=== PATIENT | male | born 1955 | race Caucasian/White ===

== ENCOUNTER 2019-05-20 21:05 | Inpatient (IN) | payer MEDICARE ==
[~2019-05-20] VITALS: Ht 170.2 cm; Wt 77.1 kg
--- NOTE | ~2019-05-20 | OP ---
PATIENT NAME: MIN FIELD MEDICAL RECORD: [id number] :59 LOCATION:D.M2 D.2 ADMISSION DATE:05/21/19 SURGEON: FRIEDA ANDERSEN MD DATE OF OPERATION: 05/22/2019 DATE OF SERVICE: 05/22/2019 PROCEDURES: 1. Laser atherectomy, PTCA stent LAD. 2. PTCA stent left circumflex. 3. Selective coronary angiography. INDICATION: Non-Q-wave myocardial infarction and coronary artery disease. PROCEDURE PERFORMED: After informed consent was obtained and after a detailed description of risks, benefits as well as alternative therapies, the patient elected to proceed with angiogram and angioplasty. The left femoral area was prepped and draped in normal sterile fashion. Left femoral artery was cannulated via modified Seldinger technique with placement of 6-Azeri sheath. All catheters exchanged through this sheath. FINDINGS: The left anterior descending has 90% stenosis distally. We performed laser atherectomy with this; however, quickly into this every time the laser catheter was advanced. He had nonsustained ventricular tachycardia. We then stented this with a 2.25 x 26 mm [place]. Result was 0% residual stenosis. PTCA STENT OF THE LEFT CIRCUMFLEX: The distal circumflex has a 90% stenosis. This was addressed with a 2.5 x 12 mm [place]. Result was 0% residual stenosis. OVERALL IMPRESSION: Successful percutaneous transluminal coronary angioplasty stent of the left anterior descending and circumflex, both going from 90% initial stenosis to 0% residual. TRANSINT:[id number] Voice Confirmation ID: [id number] DOCUMENT ID: [id number] FRIEDA ANDERSEN MD CC: [id number] DICTATION DATE: 05/22/19 112 SUPERVISOR SLATE SPLITTING: 05/22/19 1242 ADM IN [place] [id number] [place] [id number]
--- NOTE | ~2019-05-20 | HEMODYNAMI ---
PATIENT:MIN FIELD MEDICAL RECORD: [id number] : 59 LOCATION:[place] [address] ADMISSION DATE: 05/20/19 Generatedon:05/21/201911:40 Patient name: MIN FIELD Patient #: [id number] SSN: [id number] : 1955 Date of study: 05/21/2019 Page: Of Hemodynamic Procedure Report Patient Data Patient Demographics Procedure consent was obtained First Name: MIN Gender: Male Last Name: RASHIDA : 1955 Patient #: [id number] Age: 64 year(s) Race: SSN: [id number] Additional ID: [id number] Contact details Address: [address] [place] [address] [place] State: [place] City: [place] Zip code: [address] Past Medical History History of disease Date Diagnosis Comments CAD Allergies Allergen Reaction Date Comments Reported Other 05/21/2019 FLEXERIL, DROPERIDOL, allergy DILAUDID,NITROGLYCERIN, ZOFRAN, PROTONIX, STADOL, TORADOL, NUBAIN, COMPAZINE, IODINE, REGLAN, DOLOBID Admission Admission Data Admission Date: 05/20/2019 Admission Time: 21:05 Room #: 2122 Height (in.): 67 BSA: 1.92 (m2) Height (cm.): 170.18 BMI: 27.57 (kg/m2) Weight (lbs.): 176 Weight (kg.): 79.83 Lab Results Lab Result Date: 05/21/2019 Lab Result Time: 0:00 Biochemistry Name Units Result Min Max Creatinine mg/dl 1.9 --(----)-* 0.6 1.3 eGFR ml/min 46 *-(----)-- 90 120 NONAFRICAN CBC Name Units Result Min Max Hematocrit % 37 *-(----)-- 42 54 Hemoglobin g/dl 12.3 *-(----)-- 13.5 17.5 Procedure Procedure Types Cath Procedure Diagnostic Procedure [facility] w/Coronaries FFR/IVUS FFR Initial Sedation Charges Moderate Sedation up to 15 minutes PCI Procedure Coronary Atherectomy Atherectomy w/Stent Coronary Initial Procedure Description Procedure Date Procedure Date: 05/21/2019 Procedure Start Time: 11:09 Procedure End Time: 11:32 Procedure Staff Name Function Enrique Harrington MD Performing Physician Shana Hartmann RT Monitor Robby Mosher RT Scrub Harvinder Solares RN Nurse Procedure Data Cath Procedure Fluoroscopy Diagnostic fluoroscopy Total fluoroscopy Time: 4.2 time: 4.2 min min Diagnostic fluoroscopy Total fluoroscopy dose: 654 dose: 654 mGy mGy Contrast Material Contrast Material Type Amount (ml) Isovue 300 77 Entry Location Entry Primary Successful Side Size Upsize Upsize Entry Closure Succes sful Closure Location (Fr) 1 (Fr) 2 (Fr) Remarks Device Remarks Femoral Right 5 Fr 6 Fr Exoseal artery Short Estimated blood loss: 10 ml Diagnostic catheters Device Type Used For End Catheter Placement MULTIPACK Pigtail 5 Fr Procedure catheter MULTIPACK JL 4.0 5Fr Procedure catheter MULTIPACK 3DRC 5Fr Procedure catheter Procedure Complications No complications Procedure Medications Medication Administration Route Dosage Oxygen etCO2 Nasal cannula 2 l/min Lidocaine 2% added to field 20 Heparin Flush Bag added to field 2 bags (1000units/500ml NS) 0.9% NaCl I.V. 100 ml/hr Versed I.V. 2 mg Fentanyl I.V. 100 mcg Fentanyl I.V. 100 mcg Heparin Bolus I.V. 4000 units Plavix P.O. 75 mg Hemodynamics Rest BSA: 1.92 (m2) HGB: 12.3 (g/dl) O2 Consumption: Estimated: 225.29 (ml/min) O2 Co nsumption indexed: Estimated:117.34 (ml/min/m) Heart Rate: 71 (bpm) Snapshots Pre Cath Intra NCS Post Cath Vital Signs Time Heart Resp SPO2 etCO2 NIBP (mmHg) Rhythm Pain Sedation Rate (ipm) (%) (mmHg) Status Level (bpm) 10:59:49 65 17 98 0 142/79(110) NSR 8 (11) , 10(A) Utterly horrible 11:04:11 67 10 98 0 134/88(115) NSR 0 (11) , 10(A) No pain 11:08:31 72 15 98 20.3 137/87(98) NSR 0 (11) , 10(A) No pain 11:12:49 65 16 98 24.8 129/74(102) NSR 0 (11) , 10(A) No pain 11:17:05 66 16 98 18.1 122/76(97) NSR 0 (11) , 10(A) No pain 11:21:21 66 16 98 20.3 121/72(101) NSR 0 (11) , 10(A) No pain 11:25:37 70 17 97 30.1 131/81(107) NSR 0 (11) , 10(A) No pain 11:29:57 67 16 98 30.8 131/77(100) NSR 0 (11) , 10(A) No pain 11:34:17 68 16 97 28.6 133/78(106) NSR 0 (11) , 10(A) No pain 11:38:27 96 27.8 130/84(100) NSR 0 (11) , 10(A) No pain Medications Time Medication Route Dose Verified Delivered Reason Notes Effectiveness by by 11:04:12 Oxygen etCO2 2 Enrique Blanton used for Nasal l/min Len Solares RN procedure cannula 11:04:21 Lidocaine 2% added 20ml Enrique Nunez for local to vial Len Harrington MD anesthetic field 11:04:28 Heparin Flush added 2 Enrique Enrique used for Bag to bags Len Harrington MD procedure (1000units/500ml field NS) 11:04:37 0.9% NaCl I.V. 100 Enrique Blanton Per physician ml/hr Len Solares RN 11:06:48 Versed I.V. 2 mg Enrique Blanton for sedation Len Solares RN 11:06:54 Fentanyl I.V. 100 Enrique Blanton for sedation mcg Len Solares RN 11:11:16 Fentanyl I.V. 100 Enrique Blanton for sedation mcg Len Solares RN 11:17:18 Heparin Bolus I.V. 4000 Enrique Blanton for units Len Solares RN anticoagulation 11:33:01 Plavix P.O. 75 mg Enrique Blanton for Len Solares RN antiplatelet therapy Procedure Log Time Note 10:35:54 Harvinder Solares RN sent for patient. Start room use. 10:37:29 Informed consent obtained and on chart 10:38:53 Procedure Status Urgent Heart Cath (IP). 10:38:55 Time tracking: Regular hours (M-F 7:00 - 5:00) 10:38:58 Plan of Care:Hemodynamics will remain stable., Cardiac rhythm will remain stable., Comfort level will be maintained., Respiratory function will remain adequate., Patient/ family verbilizes understanding of procedure., Procedure tolerated without complication., Recovers from procedure without complications.. 10:39:08 H&P Date Dictated: 05/21/2019 New H&P dictated by physician.. 10:45:10 Patient Weight : 176 lbs 10:45:14 Patient Height : 67 inches 10:45:34 Stress Test: no; N/A NSTEMI 10:50:11 Patient allergic to Other allergyFLEXERIL, DROPERIDOL, DILAUDID,NITROGLYCERIN, ZOFRAN, PROTONIX, STADOL, TORADOL, NUBAIN, COMPAZINE, IODINE, REGLAN, DOLOBID 10:50:40 Patient received from Med II to CCL 1 Alert and oriented. Tansferred to table in Supine position. 10:50:41 Warm blankets applied, and aspen hugger turned on for patient comfort. 10:50:42 Correct patient and procedure confirmed by team. 10:50:45 ECG and BP/O2 sat monitors applied to patient. 10:58:33 Vital chart was started 10:58:34 Baseline sample Acquired. 10:58:38 Rhythm: sinus rhythm 10:58:51 Full Disclosure recording started 10:58:52 Pre-procedure instructions explained to patient. 10:58:53 Pre-op teaching completed and patient verbalized understanding. 10:58:54 Family in patients room. 10:58:57 Patient NPO since Midnight. 10:58:59 Is patient on blood thinner?Yes 11:00:50 PRELOADED ON 600 MGPLAVIX YESTERDAY AT 1801 11:00:52 Patient diabetic? No. 11:00:57 Previous problem with sedation/anesthesia? No ? 11:00:58 Snore? Yes 11:00:59 Sleep apnea? No 11:00:59 Deviated septum? No 11:01:00 Opens mouth fully? Yes 11:01:02 Sticks out tongue? Yes 11:01:05 Airway obstruction? Yes COPD 11:01:09 Dentures? No ? 11:01:12 Pre procedure: right dorsailis pedis pulse 1+ Palpable, but thready & weak; easily obliterated 11:01:15 Patient pain scale 0/10 ?. 11:01:26 IV patent on arrival in right IJ with 0.9% NaCl at [facility]. 11:01:32 Right groin area was prepped with chlora-prep and draped in sterile fashion 11:01:33 Alarms reviewed by R. N. 11:01:33 Sharps counted by scrub and verified by R.N. 11:01:37 Use device set Femoral Dx 11:01:38 ACIST Syringe (22159) opened to sterile field. 11:01:39 Bag Decanter (2002S) opened to sterile field. 11:01:40 ACIST Manifold (92731) opened to sterile field. 11:01:40 ACIST Hand Control (62455) opened to sterile field. 11:01:41 Tegaderm 4 x 4 (1626W) opened to sterile field. 11:01:42 Medline Cath Pack ([id number]) opened to sterile field. 11:01:43 DIAGNOSTIC Multipack 5Fr catheter set (FI2400) opened to sterile field. 11:01:44 SHEATH 5FR [place] (ZUC957) opened to sterile field. 11:01:44 EMERALD Guide Wire (851-990) opened to sterile field. 11:03:45 Lab Result : Creatinine 1.9 mg/dl 11:03:45 Lab Result : eGFR NONAFRICAN 46 ml/min 11:03:45 Lab Result : Hemoglobin 12.3 g/dl 11:03:45 Lab Result : Hematocrit 37 % 11:03:48 Lab results completed and on chart. 11:04:12 Oxygen 2 l/min etCO2 Nasal cannula was administered by Harvinder Solares RN; used for procedure; Verbal order read back and verified. 11:04:21 Lidocaine 2% 20ml vial added to field was administered by Enrique Harrington MD; for local anesthetic; Verbal order read back and verified. 11:04:28 Heparin Flush Bag (1000units/500ml NS) 2 bags added to field was administered by Enrique Harrington MD; used for procedure; Verbal order read back and verified. 11:04:37 0.9% NaCl 100 ml/hr I.V. was administered by Harvinder Solares RN; Per physician; Verbal order read back and verified. 11:05:00 --------ALL STOP TIME OUT------ 11:05:01 Final Timeout: patient, procedure, and site verified with staff and physician. All members of the team are in agreement. 11:05:03 Right groin site verified by team. 11:05:06 Fire Safety Assessment: A--An alcohol-based skin anteseptic being used preoperatively., C--Open oxygen or nitrous oxide is being used., D--An ESU, laser, or fiber-optic light is being used. 11:05:10 Physical assessment completed. ASA score P 2 - A patient with mild systemic disease as per Enrique Harrington MD. 11:05:12 3a) 45-59 Moderately reduced kidney function. 11:05:16 Maximum allowable contrast dose (3.7 X eGFR X 0.75)128 ml. 11:05:19 Sedation plan: IV Moderate Sedation Medication:Versed, Fentanyl 11:06:48 Versed 2 mg I.V. was administered by Harvinder Solares RN; for sedation; Verbal order read back and verified. 11:06:54 Fentanyl 100 mcg I.V. was administered by Harvinder Solares RN; for sedation; Verbal order read back and verified. 11:07:21 Procedure started. 11:08:15 Zero performed for pressure channel P1 11:09:17 Local anesthetic to right femoral artery with Lidocaine 2% by Enrique Harrington MD.INITIAL ACCESS ONLY 11:10:31 A 5 Fr sheath was inserted into the Right Femoral artery 11:10:38 A MULTIPACK Pigtail 5 Fr catheter was advanced over the wire and used for Procedure. 11:10:41 LV gram done using CEDEÑO 11:10:43 Injector settings: Ml/sec: 10, Volume: 20, 11:11:00 EF : 15 % 11:11:04 Catheter removed. 11:11:16 Fentanyl 100 mcg I.V. was administered by Harvinder Solares RN; for sedation; Verbal order read back and verified. 11:11:32 A MULTIPACK JL 4.0 5Fr catheter was advanced over the wire and used for Procedure. 11:13:10 LCA angiography performed. 11:13:12 Catheter removed. 11:13:19 A MULTIPACK 3DRC 5Fr catheter was advanced over the wire and used for Procedure. 11:14:20 RCA angiography performed. 11:14:37 Catheter removed. 11:14:48 SHEATH 6FR [place] ([id number]) opened to sterile field. 11:14:49 INFLATOR Merit BasixCompak (JX8442) opened to sterile field. 11:14:52 Proceeding to intervention. 11:15:22 [place] Verrata Plus pressure wire (74167E) opened to sterile field. 11:15:28 GUIDE 6FR AR 2.0 catheter ([id number]) opened to sterile field. 11:15:47 Sheath upsized to a 6 Fr Short. 11:16:37 6 Fr AR 2 guide catheter was inserted over the wire 11:17:18 Heparin Bolus 4000 units I.V. was administered by Harvinder Solares RN; for anticoagulation; Verbal order read back and verified. 11:18:31 FFR/IFR wire advanced. 11:18:43 Wire advanced across lesion. 11:19:00 mRCA lesion measured at .80 with IFR 11:19:34 Pre PCI Site: [place] dRCA has 70% stenosis. 11:19:53 LASER ELCA 0.9 Rx atherectomy catheter (515165) opened to sterile field. 11:21:28 Laser pass to mRCA with Fluence of 80 and Rate of 40. 11:23:20 Laser catheter removed. 11:23:21 Laser total pulses delivered: 1200 11:23:23 Laser total treatment time: 0 minutes 30 seconds 11:25:06 Place stent Inflation Number: 1 A GEORGE RX 3.5 x 18 stent ([id number]) was prepped and advanced across the Prox RCA . The stent was deployed at 21 FORTINO for 0:00 (min:sec) . 11:25:28 Stent catheter was removed intact over wire. 11:26:27 FFR/IFR wire advanced. 11:26:41 mRCA lesion measured at 1.05 with IFR 11:26:47 Wire removed. 11:26:47 Guide catheter removed. 11:27:35 EXOSEAL 6Fr (EX600) opened to sterile field. 11:27:46 Sheath removed intact; hemostasis achieved with Exoseal to the Right Femoral artery. 11:27:47 Procedure ended.(Physican Out) 11:29:35 ACT drawn and resulted at 219 seconds. (normal therapeutic range 180-240 seconds). 11:29:41 Fluoroscopy time 04.20 minutes. 11:29:50 Fluoroscopy dose: 654 mGy 11::50 Flurop Dose total: 654 11:29:59 Dose Area Product 18105 mGy/cm. 11:30:04 Contrast amount:Isovue 300 77ml. 11:30:06 Maximum allowable dose exceeded? No. 11:30:07 Sharps counted by scrub and verified by R.N. 11:30:10 Post-op/insertion site Right Femoral artery dressed using a 4 x 4 and Tegaderm. 11:30:13 Post-procedure physical assessment completed. ASA score P 2 - A patient with mild systemic disease as per Enrique Harrington MD. 11:30:21 Post procedure rhythm: sinus rhythm 11:30:23 Estimated blood loss: 10 ml 11:30:24 Post procedure instruction explained to patient.Patient verbalizes understanding. 11:30:24 Patient needs reinforcement of post procedure teaching. 11:31:01 Procedure type changed to Cath procedure, Diagnostic procedure, LHC, C w/Coronaries, FFR/IVUS, FFR Initial, Sedation Charges, Moderate Sedation up to 15 minutes, PCI procedure, Coronary Atherectomy, Atherectomy w/Stent Coronary Initial 11:31:10 Procedure and supply charges have been captured, reviewed, submitted and are correct. 11:31:13 Procedure Complication : No complications 11:31:17 [facility] Findings: MVD- PCI performed (see procedure note) 11:31:19 Operative report dictated upon procedure completion. 11:31:22 See physician's report for complete and final results. 11:31:23 Report given to PCU. 11:32:34 Patient transfered to PCU with Bed. 11:32:36 Procedure ended. 11:32:36 Full Disclosure recording stopped 11:32:43 ACC-PCI Only Patient was given prescriptions, or instructed by Enrique Harrington MD to start/continue the following medications upon discharge: Plavix 11:32:45 End room use (Document Last) 11:33:01 Plavix 75 mg P.O. was administered by Harvinder Solares RN; for antiplatelet therapy; Verbal order read back and verified. 11:40:01 Vital chart was stopped Intervention Summary Intervention Notes Time ActionType Lesion and Equipment Used Action# Pressure Duration Attributes 11:25:[address] Place stent Prox RCA GEORGE RX 3.5 x 1 21 00:00 18 stent ([id number]) Device Usage Item Name Manufacture Quantity Catalog Hospital Part Current Minimal Lot# / Number Charge Number Stock Stock Serial# Code ACIST Syringe Acist 1 65826 055975 758908 566163 20 (61073) Medical Systems Inc Bag Decanter Microtek 1 2001S 547451 61303 496406 5 (2001S) Medical Inc. ACIST Manifold Acist 1 68956 666919 016108 674645 5 (21441) Medical Systems Inc ACIST Hand Acist 1 08123 011312 042791 851605 5 Control Medical (67316) Systems Inc Tegaderm 4 x 4 3M 1 1626W 455676 578800 369353 5 (1626W) Medline Cath Medline 1 [id number] 567700 74826 449259 5 Pack ([id number]) DIAGNOSTIC Cardinal 1 GT4766 309897 19725 254154 30 Multipack 5Fr Health catheter set (PS2829) SHEATH 5FR Terumo 1 PGG637 291566 900881 755126 5 [place] (AOO975) EMERALD Guide Cardinal 1 502-455 030722 488204 265374 5 Wire (502-455) Health MULTIPACK Cardinal 1 248612 5 Pigtail 5 Fr Health catheter MULTIPACK JL Cardinal 1 976676 5 4.0 5Fr Health catheter MULTIPACK 3DRC Cardinal 1 490561 5 5Fr catheter Health SHEATH 6FR Terumo 1 EQF792 159663 237018 295133 40 [place] (NNJ081) INFLATOR Merit Merit 1 WM4754 967052 032107 568177 15 BasBacterioscannyGift2Greet.com Medical (EE8498) [place] 1 93137P 878227 300605835 922457 5 Verrata Plus pressure wire (42309B) GUIDE 6FR AR Medtronic 1 [id number] 053766 31833 918334 1 2.0 catheter ([id number]) LASER ELCA 0.9 Mai 1 110-004 746904 652679 682866 5 Rx atherectomy Healthcare catheter (898913) (747601) GEORGE RX 3.5 x Medtronic 1 [id number] 462066 9265804 546878 5 [id number] 18 stent ([id number]) EXOSEAL 6Fr Cardinal 1 EX600 884574 452463 512698 10 (EX600) Health Signature Audit [place] Stage Time Signature Unsigned Intra-Procedure 05/21/2019 Shana Hartmann 11:39:04 AM RT(R) Intra-Procedure 05/21/2019 Harvinder Solares RN 11:39:38 AM Intra-Procedure 05/21/2019 Enrique Harrington 11:39:59 AM [place] [id number]
--- NOTE | ~2019-05-20 | HEMODYNAMI ---
PATIENT:MIN FIELD MEDICAL RECORD: [id number] : 59 [address] [id number] ADMISSION DATE: 05/21/19 Generatedon:05/22/201911:19 Patient name: MIN FIELD Patient #: [id number] SSN: [id number] : 1955 Date of study: 05/22/2019 Page: Of Hemodynamic Procedure Report Patient Data Patient Demographics Procedure consent was obtained First Name: MIN Gender: Male Last Name: RASHIDA : 1955 Patient #: [id number] Age: 64 year(s) Race: SSN: [id number] Additional ID: [id number] Contact details Address: [address] [place] [address] circle State: [place] City: [place] Zip code: [address] Past Medical History History of disease Date Diagnosis Comments CAD Allergies Allergen Reaction Date Comments Reported Other 05/21/2019 FLEXERIL, DROPERIDOL, allergy DILAUDID,NITROGLYCERIN, ZOFRAN, PROTONIX, STADOL, TORADOL, NUBAIN, COMPAZINE, IODINE, REGLAN, DOLOBID Admission Admission Data Admission Date: 05/21/2019 Admission Time: 15:10 Arrival Date: 05/21/2019 Arrival Time: 0:00 Admit Source: Other Insurance Payor: Medicare, Room #: D.2122 Medicaid Height (in.): 67 BSA: 1.92 (m2) Height (cm.): 170.18 BMI: 27.57 (kg/m2) Weight (lbs.): 176 Weight (kg.): 79.83 Lab Results Lab Result Date: 05/21/2019 Lab Result Time: 0:00 Biochemistry Name Units Result Min Max Creatinine mg/dl 1.9 --(----)-* 0.6 1.3 eGFR ml/min 46 *-(----)-- 90 120 NONAFRICAN CBC Name Units Result Min Max Hematocrit % 37 *-(----)-- 42 54 Hemoglobin g/dl 12.3 *-(----)-- 13.5 17.5 Procedure Procedure Types Cath Procedure PCI Procedure Procedure Description Procedure Date Procedure Date: 05/22/2019 Procedure Start Time: 11:01 Procedure End Time: 11:16 Procedure Staff Name Function Enrique Harrington MD Performing Physician Carolynn Kapadia RT Monitor Ashley Boswell RN Nurse Kayleigh Nicole RT Scrub Procedure Data Cath Procedure Fluoroscopy Diagnostic fluoroscopy Total fluoroscopy Time: 0 time: 0 min min Diagnostic fluoroscopy Total fluoroscopy dose: 537 dose: 537 mGy mGy Contrast Material Contrast Material Type Amount (ml) Isovue 300 537 Entry Location Entry Primary Successful Side Size Upsize Upsize Entry Closure Succes sful Closure Location (Fr) 1 (Fr) 2 (Fr) Remarks Device Remarks Femoral Left 6 Fr Exoseal artery Short Estimated blood loss: 5 ml Procedure Complications No complications Procedure Medications Medication Administration Route Dosage 0.9% NaCl I.V. 100 ml/hr Oxygen etCO2 Nasal cannula 2 l/min Lidocaine 2% added to field 20 Heparin Flush Bag added to field 2 bags (1000units/500ml NS) Solumedrol I.V. 125 mg Versed I.V. 2 mg Fentanyl I.V. 50 mcg Heparin Bolus I.V. 4000 units Versed I.V. 2 mg Fentanyl I.V. 50 mcg Versed I.V. 2 mg Hemodynamics Rest BSA: 1.92 (m2) HGB: 12.3 (g/dl) O2 Consumption: Estimated: 229.01 (ml/min) O2 Co nsumption indexed: Estimated:119.28 (ml/min/m) Heart Rate: 76 (bpm) Snapshots Pre Cath Intra NCS Post Cath Vital Signs Time Heart Resp SPO2 etCO2 NIBP (mmHg) Rhythm Pain Sedation Rate (ipm) (%) (mmHg) Status Level (bpm) 10:42:22 78 28 100 22.9 124/94(107) NSR 0 (11) 10(A) , No pain 10:46:46 66 17 100 34.1 122/79(103) NSR 0 (11) 10(A) , No pain 10:51:08 66 17 99 31.9 118/75(95) NSR 0 (11) 10(A) , No pain 10:55:32 66 17 99 31.8 117/71(95) NSR 0 (11) 10(A) , No pain 10:59:54 66 17 99 31.9 114/73(86) NSR 0 (11) 10(A) , No pain 11:04:17 69 18 100 31.8 114/73(98) NSR 0 (11) 10(A) , No pain 11:08:39 71 18 99 31.9 104/68(85) NSR 0 (11) 10(A) , No pain 11:12:57 72 18 98 22.9 115/72(95) NSR 0 (11) 10(A) , No pain 11:17:19 69 20 100 27.4 117/74(97) NSR 0 (11) 10(A) , No pain Medications Time Medication Route Dose Verified Delivered Reason Notes Effectiveness by by 10:41:23 0.9% NaCl I.V. 100 Enrique Ashley used for ml/hr Len Boswell lumber piler 10:41:31 Oxygen etCO2 2 Enrique Ashley used for Nasal l/min Len Boswell procedure cannula RN 10:41:36 Lidocaine 2% added 20ml Enrique Enrique for local to vial Len Harrington MD anesthetic field 10:41:40 Heparin Flush added 2 Enrique Enrique used for Bag to bags Len Harrington MD procedure (1000units/500ml field NS) 10:48:44 Solumedrol I.V. 125 Enrique Ashley For allergic mg Len Boswell reaction RN 10:59:09 Versed I.V. 2 mg Enrique Ashley for sedation Len Boswell RN 10:59:18 Fentanyl I.V. 50 Enrique Ashley for sedation mcg Len Boswell RN 11:04:31 Heparin Bolus I.V. 4000 Enrique Ashley for verif ied units Len Boswell anticoagulation with Dr. HARMAN Harrington 11:05:14 Versed I.V. 2 mg Enrique Ashley for sedation Len Boswell RN 11:05:20 Fentanyl I.V. 50 Enrique Ashley for sedation mcg Len Boswell RN 11:10:27 Versed I.V. 2 mg Enrique Ashley for sedation Len Boswell RN Procedure Log Time Note 10:07:32 Patient Height : 67 inches 10:07:32 Patient Weight : 176 lbs 10:20:30 Arrival Date: 05/21/2019 12:00:00 AM 10:20:50 Procedure type changed to Cath procedure, PCI procedure 10:31:03 Procedure Status Urgent Heart Cath (IP). 10:31:05 Ashley Boswell RN sent for patient. Start room use. 10:31:07 Time tracking: Regular hours (M-F 7:00 - 5:00) 10:31:14 Plan of Care:Hemodynamics will remain stable., Cardiac rhythm will remain stable., Comfort level will be maintained., Respiratory function will remain adequate., Patient/ family verbilizes understanding of procedure., Procedure tolerated without complication., Recovers from procedure without complications.. 10:33:14 Admit Source: Other 10:33:19 Insurance Payor : Medicare, Medicaid 10:36:40 Patient received from Med II to CCL 1 Alert and oriented. Tansferred to table in Supine position. 10:36:43 Signed procedure consent form obtained from patient. 10:36:44 Warm blankets applied, and aspen hugger turned on for patient comfort. 10:36:45 Correct patient and procedure confirmed by team. 10:41:10 Vital chart was started 10:41:23 0.9% NaCl 100 ml/hr I.V. was administered by Ashley Boswell RN; used for procedure; Verbal order read back and verified. 10:41:31 Oxygen 2 l/min etCO2 Nasal cannula was administered by Ashley Boswell RN; used for procedure; Verbal order read back and verified. 10:41:36 Lidocaine 2% 20ml vial added to field was administered by Enrique Harrington MD; for local anesthetic; Verbal order read back and verified. 10:41:40 Heparin Flush Bag (1000units/500ml NS) 2 bags added to field was administered by Enrique Harrington MD; used for procedure; Verbal order read back and verified. 10:45:57 ECG and BP/O2 sat monitors applied to patient. 10:45:59 Baseline sample Acquired. 10:46:07 Rhythm: sinus rhythm 10:46:09 Full Disclosure recording started 10:46:17 H&P Date Dictated: 05/22/2019 New H&P dictated by physician.. 10:46:19 Pre-procedure instructions explained to patient. 10:46:20 Pre-op teaching completed and patient verbalized understanding. 10:46:21 Family in waiting room. 10:46:25 Patient NPO since Midnight. 10:46:27 Is the patient allergic to Iodine/contrast media? No. 10:46:28 Was the patient premedicated? No 10:46:29 Is patient on blood thinner?Yes 10:46:32 ACC The patient was administered the following blood thiners within the last 24 hours: ACCPlavix 10:46:34 Patient diabetic? No. 10:46:39 Previous problem with sedation/anesthesia? No ? 10:46:41 Snore? Yes 10:46:42 Sleep apnea? No 10:46:43 Deviated septum? No 10:46:44 Opens mouth fully? Yes 10:46:45 Sticks out tongue? Yes 10:46:47 Airway obstruction? No ? 10:46:50 Dentures? No ? 10:46:55 Pre procedure: right dorsailis pedis pulse 1+ Palpable, but thready & weak; easily obliterated 10:46:58 Pre procedure: left dorsailis pedis pulse 1+ Palpable, but thready & weak; easily obliterated 10:47:01 Patient pain scale 0/10 ?. 10:47:07 IV patent on arrival in right forearm with 0.9% NaCl at O. 10:47:10 Lab results completed and on chart. 10:48:44 Solumedrol 125 mg I.V. was administered by Ashley Boswell RN; For allergic reaction; Verbal order read back and verified. 10:50:30 Stress Test: no; N/A ? 10:50:36 Left groin area was prepped with chlora-prep and draped in sterile fashion 10:50:37 Alarms reviewed by R. N. 10:50:37 Sharps counted by scrub and verified by R.N. 10:50:40 Physician paged 10:58:24 Physician arrived 10:58:24 --------ALL STOP TIME OUT------ 10:58:25 Final Timeout: patient, procedure, and site verified with staff and physician. All members of the team are in agreement. 10:58:27 Left groin site verified by team. 10:58:31 Fire Safety Assessment: A--An alcohol-based skin anteseptic being used preoperatively., C--Open oxygen or nitrous oxide is being used., D--An ESU, laser, or fiber-optic light is being used. 10:58:35 Physical assessment completed. ASA score P 2 - A patient with mild systemic disease as per Enrique Harrington MD. 10:58:43 3a) 45-59 Moderately reduced kidney function. 10:58:49 Maximum allowable contrast dose (3.7 X eGFR X 0.75)113 ml. 10:58:54 Sedation plan: IV Moderate Sedation Medication:Versed, Fentanyl 10:59:00 Use device set Acist 10:59:02 ACIST Syringe (53220) opened to sterile field. 10:59:02 ACIST Hand Control (47282) opened to sterile field. 10:59:03 ACIST Manifold (01469) opened to sterile field. 10:59:09 Versed 2 mg I.V. was administered by Ashley Boswell RN; for sedation; Verbal order read back and verified. 10:59:18 Fentanyl 50 mcg I.V. was administered by Ashley Boswell RN; for sedation; Verbal order read back and verified. 10:59:21 CHOICE PT Extra Support 182cm wire ([id number]) opened to sterile field. 10:59:21 INFLATOR Merit BasixCompak (AM8871) opened to sterile field. 10:59:22 SHEATH 6FR [place] (DFS978) opened to sterile field. 10:59:36 EMERALD Guide Wire (114-402) opened to sterile field. 10:59:52 PCI Cath status Urgent 11:01:54 Procedure started. 11:01:57 Local anesthetic to left femerol artery with Lidocaine 2% by Enrique Harrington MD.INITIAL ACCESS ONLY 11:02:07 A 6 Fr Short sheath was inserted into the Left Femoral artery 11:02:28 GUIDE 6FR XBLAD 3.5 catheter ([id number]) opened to sterile field. 11:02:52 6 Fr xblad 3.5 guide catheter was inserted over the wire 11:04:31 Heparin Bolus 4000 units I.V. was administered by Ashley Boswell RN; for anticoagulation; verified with Dr. Harrington Verbal order read back and verified. 11:04:43 LCA angiography performed. 11:04:46 Injector settings: Ml/sec: 3, Volume: 6, 11:05:14 Versed 2 mg I.V. was administered by Ashley Boswell RN; for sedation; Verbal order read back and verified. 11:05:20 Fentanyl 50 mcg I.V. was administered by Ashley Boswell RN; for sedation; Verbal order read back and verified. 11:05:42 choicept wire advanced. 11:06:31 Pre PCI Site: Crow dLAD has 90% stenosis. 11:06:54 LASER ELCA 0.9 Rx atherectomy catheter (614846) opened to sterile field. 11:07:17 Laser pass to dLAD with Fluence of 80 and Rate of 40. 11:08:36 Laser catheter removed. 11:10:14 Laser total pulses delivered: 299 11:10:26 Laser total treatment time: 1 minutes 7 seconds 11:10:27 Versed 2 mg I.V. was administered by Ashley Boswell RN; for sedation; Verbal order read back and verified. 11:11:08 Place stent Inflation Number: 1 A GEORGE RX 2.25 x 26 stent ([id number]) was prepped and advanced across the Dist LAD 90. The stent was deployed at 15 FORTINO for 0:10 (min:sec) 0. 11:11:56 Stent catheter was removed intact over wire. 11:12:05 Wire redirected to lcx. 11:13:58 Place stent Inflation Number: 1 A GEORGE RX 2.5 x 12 stent ([id number]) was prepped and advanced across the Dist CX 90. The stent was deployed at 15 FORTINO for 0:10 (min:sec) . 11:14:38 Stent catheter was removed intact over wire. 11:14:39 Wire removed. 11:14:39 Guide catheter removed. 11:14:40 ACT drawn and resulted at 229 seconds. (normal therapeutic range 180-240 seconds). 11:14:57 EXOSEAL 6Fr (EX600) opened to sterile field. 11:15:08 Sheath removed intact; hemostasis achieved with Exoseal to the Left Femoral artery. 11:15:11 Procedure ended.(Physican Out) 11:15:48 Fluoroscopy time 00.00 minutes. 11:15:53 Flurop Dose total: 537 11:15:53 Fluoroscopy dose: 537 mGy 11:15:59 Dose Area Product 57950 mGy/cm. 11:16:06 Contrast amount:Isovue 300 537ml. 11:16:08 Maximum allowable dose exceeded? No. 11:16:11 Sharps counted by scrub and verified by R.N. 11:16:12 Insertion/operative site no bleeding no hematoma. 11:16:15 Post-op/insertion site Left Femoral artery dressed using a 4 x 4 and Tegaderm. 11:16:19 Post procedure rhythm: unchanged. 11:16:24 Estimated blood loss: 5 ml 11:16:26 Post procedure instruction explained to patient.Patient verbalizes understanding. 11:16:26 Patient needs reinforcement of post procedure teaching. 11:16:27 Procedure and supply charges have been captured, reviewed, submitted and are correct. 11:16:38 Procedure Complication : No complications 11:16:40 Vital chart was stopped 11:16:48 [facility] Findings: MVD- PCI performed (see procedure note) 11:16:49 Operative report dictated upon procedure completion. 11:16:49 See physician's report for complete and final results. 11:16:52 Report given to [facility]. 11:16:55 Patient transfered to [facility] with Stretcher. 11:16:58 Procedure ended. 11:16:58 Full Disclosure recording stopped 11:17:07 ACC-PCI Only Patient was given prescriptions, or instructed by Enrique Harrington MD to start/continue the following medications upon discharge: Plavix 11:17:09 End room use (Document Last) Intervention Summary Intervention Notes Time ActionType Lesion and Equipment Used Action# Pressure Duration Attributes 11:11:08 Place stent Dist LAD GEORGE RX 2.25 x 1 15 00:10 26 stent ([id number]) 11:13:58 Place stent Dist CX GEORGE RX 2.5 x 1 15 00:10 12 stent ([id number]) Device Usage Item Name Manufacture Quantity Catalog Number Hospital Part Current M inimal Lot# / Charge Number Stock Stock Serial# Code ACIST Syringe Acist 1 50588 913667 788014 610984 2 0 (25937) Medical Systems Inc ACIST Hand Acist 1 74865 454055 523081 859581 5 Control Medical (64725) Systems Inc ACIST Manifold Acist 1 23351 690807 262848 661385 5 (10105) Medical Systems Inc CHOICE PT [place] 1 [id number] 132996 312878 095092 5 Extra Support Scientific 182cm wire ([id number]) INFLATOR Merit Merit 1 XX4592 398931 201335 363941 1 5 BasixNJVC Medical (HO7813) SHEATH 6FR Terumo 1 ZHI440 168413 014986 120630 4 0 [place] (VDL619) EMERALD Guide Cardinal 1 502-455 856285 438060 374042 5 Wire (502-455) Health GUIDE 6FR Cardinal 1 96516505 567675 624182 663817 1 0 XBLAD 3.5 Health catheter (56029442) LASER ELCA 0.9 Mai 1 110-004 183232 015950 817776 5 Rx atherectomy Healthcare catheter (956129) (822294) GEORGE RX 2.25 x Medtronic 1 [id number] 174003 9542074 287063 5 [id number] 26 stent ([id number]) GEORGE RX 2.5 x Medtronic 1 [id number] 757298 4515319 125977 5 [id number] 12 stent ([id number]) EXOSEAL 6Fr Cardinal 1 EX600 315616 517047 620115 1 0 (EX600) Health Signature Audit [place] Stage Time Signature Unsigned Intra-Procedure 05/22/2019 Carolynn Kapadia 11:19:17 AM RT(R) Intra-Procedure 05/22/2019 Ashley Boswell 11:19:36 AM RN Intra-Procedure 05/22/2019 Enrique Harrington 11:19:56 AM [place] [id number] [place] [address]
[2019-05-20] MEDS ORDERED: ATIVAN1 MG PO (21:24)
[2019-05-20] MEDS ORDERED: LASIX40 MG PO (21:24)
[2019-05-20] MEDS ORDERED: LISINOPRIL40 MG PO (21:24)
[2019-05-20] MEDS ORDERED: MORPHINE PUMP (21:25)
[2019-05-20] MEDS ORDERED: PHENERGAN25 M1 PO (21:25)
[2019-05-20 21:53] LABS: AMYLASE - SERUM 60 U/L (25-115); CKMB 0.6 U/L (0.0-3.6); CREATINE KINASE 23 UL (21-232); LIPASE 187 U/L (73-393)
[2019-05-20 21:55] LABS: TROPONIN-I 0.247 ng/mL (0.000-0.060)
--- NOTE | 2019-05-20 23:46 | NUR ---
PT ARRIVED TO FLOOR VIA WHEELCHAIR ALERT AND ORIENTED X4. PT STATES, "I'M HAVING A PANIC ATTACK, I FEEL LIKE IM ABOUT TO GO BANNANA'S AND LOOSE MY MIND." INSTRUCTED PT TO TAKE DEEP BREATHS AND FOCUS ON BREATHING. PAGED DR. ANDERSEN, NEW ORDERS ESTABLISHED FOR ATIVAN. SEE MAR. PT PLACED ON TELEMETRY RUNNING 54-SB. 2L O2 IN PLACE NC. PT HAS RIGHT RIGHT EXTERNAL JUGULAR IV SALINE LOCKED. PT HAS PACEMAKER/DEFIB. PT ALSO HAS PAIN PUMP IMBEDDED TO LEFT HIP WITH MORPHINE. PT NPO OF MIDNIGHT. PT DENIES ANY FURTHER NEEDS AT THIS TIME. BED LOW CALL LIGHT WITHIN REACH. WILL CONTINUE TO MONITOR.
--- NOTE | 2019-05-21 01:37 | NUR ---
PT RESTING WITH EYES CLOSED AT THIS TIME. RR EVEN AND UNLABORED. NO S/S OF DISTRESS. BED LOW CALL LIGHT WITHIN REACH. WILL CONTINUE TO MONITOR.
[2019-05-21 02:05] VITALS: BP 155/103; BMI 26.7
[2019-05-21 04:00] VITALS: BP 136/87
--- NOTE | 2019-05-21 07:20 | NUR ---
REPORT RECEIVED. WILL CONTINUE WITH POC. PT CURRENTLY LYING SUPINE. CALL LIGHT W/I REACH. PT IS AAO AND UP AD MAYKEL. RR EVEN AND UNLABORED ON 2L 02. R.EJ SALINE LOCKED. PT IS NPO FOR HEART CATH THIS AM. NO S/S OF DISTRESS NOTED. PT DENIES ANY NEEDS AT THIS TIME. WILL CTM.
[2019-05-21 08:50] VITALS: BP 129/82
--- NOTE | 2019-05-21 09:31 | NUR ---
PREOP MEDICATIONS ADMINISTERED PER DINING ROOM HELPER REQUEST. CONSENTS SIGNED. NS INFUSING @KVO VIA R.EJ PIV. PT DENIES ANY NEEDS. NO S/S OF DISTRESS NOTED. WILL CTM.
--- NOTE | 2019-05-21 11:55 | NUR ---
RECEIVED PT FROM PRINTED CIRCUIT BOARDS PINNER. PT IS RESTING WITH EYES CLOSED AT THIS TIME. MINIMAL BLOOD NOTED ON DRESSING TO RIGHT FEMORAL SITE. PRINTED CIRCUIT BOARDS PINNER TEAM AWARE. NO S/S OF HEMATOMA OR BLEEDING PRESENT. NO S/S OF DISTRESS NOTED. NS INFUSING @200ML/HR VIA R.EJ PIV. WILL CTM.
--- NOTE | 2019-05-21 15:28 | OP ---
PATIENT NAME: MIN FIELD MEDICAL RECORD: [id number] :[birth year] LOCATION:D.M2 D.2 ADMISSION DATE:05/21/19 SURGEON: FRIEDA ANDERSEN MD DATE OF OPERATION: 05/21/2019 DATE OF SERVICE: 05/21/2019 PROCEDURES: 1. PTCA stent, laser atherectomy RCA. 2. IFR RCA. 3. Left heart catheterization. 4. Selective coronary angiography. 5. Left ventriculogram. INDICATION: Non-Q-wave myocardial infarction. PROCEDURE IN DETAIL: After informed consent was obtained and after a detailed description of risks, benefits as well as alternative therapies, the patient elected to proceed with angiogram and angioplasty. The right femoral area was prepped and draped in normal sterile fashion. Right femoral artery was cannulated via modified Seldinger technique with placement of 6-Albanian sheath. All catheters exchanged through this sheath. FINDINGS: Left ventriculogram was performed in standard 30-degree CEDEÑO view, reveals global hypokinesis, ejection fraction 15% to 20%. SELECTIVE CORONARY ANGIOGRAPHY: 1. Left main is with no significant angiographic disease. 2. Left anterior descending has previously placed stents with 90% in-stent restenosis distally. 3. Left circumflex has previously placed stents with 90% in-stent restenosis distally. 4. The right coronary has previously placed stents. This is very large, dominant vessel. There is a hazy 70% stenosis in the proximal vessel. IFR was abnormal at 0.8. PTCA STENT OF THE RCA: Laser atherectomy was performed with a 0.9 laser catheter at 80/40. Multiple passes were made. Stenting was undertaken with a 3.5 x 18 mm Tomy. Result was 0% residual stenosis. IFR normalized to 1.04. OVERALL IMPRESSION: Successful percutaneous transluminal coronary angioplasty stent of the right coronary artery going from 70% hazy stenosis with an abnormal IFR of 0.8 to 0% residual stenosis with normalization of the IFR to 1.04. Due to his renal insufficiency and dye conservation, we will proceed with percutaneous transluminal coronary angioplasty stent of the left anterior descending and circumflex in a staged fashion. TRANSINT:[id number] Voice Confirmation ID: [id number] DOCUMENT ID: [id number] OPERATIVE REPORT [id number] MIN FIELD FRIEDA ANDERSEN MD at 9759 CC: [id number] DICTATION DATE: 05/21/19 1132 BESSEMER BOTTOM MAKER: 05/21/[address] [facility] [address] [place] [address]
--- NOTE | 2019-05-21 15:28 | HP ---
PATIENT: MIN FIELD MEDICAL RECORD: [id number] ACCOUNT: [id number] LOCATION:[address] : 59 ADMISSION DATE: 05/21/19 PCP: KIAH PARSONS HISTORY AND PHYSICAL EXAMINATION DATE OF SERVICE: 05/21/2019 DIAGNOSES: 1. Non-Q-wave myocardial infarction. 2. Coronary artery disease. 3. Previous multivessel percutaneous transluminal coronary angioplasty stent. 4. Hypertension. HISTORY OF PRESENT ILLNESS: Mr. Field presents with chest pain times 3 days, worsening yesterday. His troponin is positive. He does have a history of multivessel coronary artery disease. Last cardiac stent in 2015. His sugar boiler is Dr. Lundberg in [place]. He continues to have episodes of chest pain this morning. PHYSICAL EXAMINATION: CONSTITUTIONAL/GENERAL APPEARANCE: Well nourished, well developed, appears stated age. EYES: Lids and conjunctivae noninjected. No discharge. No pallor. ENT: Lips within normal limit. No cyanosis. No pallor. NECK: Carotid arteries, bilateral normal upstroke. No bruits. No thrills. No jugular venous pressure or distention. CERVICAL LYMPH NODES: Nontender. Nonenlarged. THYROID: Not enlarged. No nodules. CARDIOVASCULAR: Precordial exam, nondisplaced. No heaves or pericardial thrills. Rate and rhythm, regular. Heart sounds, normal S1, normal S2. No S3, no gallop, no rub. Systolic murmur, not heard. Diastolic murmur, not heard. RESPIRATORY: Respiratory effort, unlabored. Normal curvature. No thoracic deformity. No chest wall tenderness. Percussion, resonant. Auscultation, clear. No wheezes, no rales, no rhonchi. ABDOMEN: Soft, nondistended, nontender. No abdominal pain, no vomiting and normal appetite. MUSCULOSKELETAL: No joint tenderness, normal gait, normal tone. SKIN: Warm and dry. OVERALL IMPRESSION: Chest pain compatible with angina, non-Q-wave myocardial infarction, continued chest pain, most likely he has recurrent hemodynamically significant disease. We will proceed with coronary angiography. Further care depends upon findings of the angiography. TRANSINT:[id number] Voice Confirmation ID: [id number] DOCUMENT ID: [id number] HISTORY AND PHYSICAL [id number] MIN FIELD, FRIEDA POWELL at 1528 CC: [id number] DICTATION DATE: 05/21/19911 APPRENTICE COSMETOLOGIST: 05/21/19 1055 ADM IN [place] [address] [place] [address]
[2019-05-21 18:26] VITALS: BP 141/90
--- NOTE | 2019-05-21 19:30 | NUR ---
PT SITTING UP IN BED ALERT AND ORIENTED X4. R.GROIN SITE SOFT TO PALPATION NO NO BRUISING SEEN. RR EVEN AND UNLABORED. NO S/S OF DISTRESS AT THIS TIME. BED LOW CALL LIGHT WITHIN REACH. WILL CONTINUE YO MONITOR.
[2019-05-21 20:00] VITALS: BP 138/90
[2019-05-22] VITALS: BP 132/88
--- NOTE | 2019-05-22 03:05 | NUR ---
I have reviewed this patient and I concur with the Shift Assessment completed by the Licensed Practical Nurse today this shift.
--- NOTE | 2019-05-22 04:24 | NUR ---
PT COMPLAINS OF 8/10 CHEST PAIN. PRN PAIN MED GIVEN. WILL CONTINUIE TO MONITOR.
[2019-05-22 04:30] VITALS: BP 128/72
[2019-05-22 05:15] LABS: BASOPHILS 0 % (0-2); EOSINOPHILS 0 % (0-7); HEMOGLOBIN 11.4 g/dL (13.5-17.5); IMMATURE GRANULOCYTES 0.2 % (0-5); LYMPHOCYTES 12.1 % (15-50); MCHC 33.5 g/dL (31.0-37.0); MCV 107.3 fL (80.0-100.0); MEAN PLATELET VOLUME 10.4 fL (7.4-10.4); MONOCYTES 6.5 % (2-11); NEUTROPHILS 81.2 % (40-80); PLATELET COUNT 257 10x3/uL (130-400); RBC 3.17 10x6/uL (4.20-6.10); RDW 14.9 % (11.5-14.5); WBC 10.9 10x3/uL (4.8-10.8)
[2019-05-22 05:19] LABS: ANION GAP 14.6 mmol/L (8-16); CALCIUM 8.7 mg/dL (8.5-10.1); CARBON DIOXIDE 23.6 mmol/L (21.0-32.0); CREATININE - SERUM 1.8 mg/dL (0.6-1.3); POTASSIUM - SERUM 4.2 mmol/L (3.5-5.1)
--- NOTE | 2019-05-22 07:47 | NUR ---
ALERT AND ORIENTED. TELEMERTY SHOWS SINUS RHYTHM 64. PT HAS A PACEMAKER AND DEFIBULATOR.PT HAS A RIGHT EJ SL AND A LEFT CHEST IP.RIGHT GROIN SOFT WITH DRSG DRY AND INTACT. PPP. INTERNAL PAIN PUMP TO HIS LEFT HIP. DENIES AY NEEDS. SR UP WITH CALL LIGHT IN REACH
[2019-05-22 08:36] VITALS: BP 125/70
--- NOTE | 2019-05-22 09:54 | NUR ---
I have reviewed this patient and I concur with the Shift Assessment completed by the Licensed Practical Nurse today this shift.
--- NOTE | 2019-05-22 11:42 | NUR ---
BACK FROM BUSINESS MANAGEMENT SPECIALIST. V/S STABLE. B/P 117/70, RESP 16, HR72 AND 02 SAT 96. LEFT GROIN SOFT WITH DRSG DRY AND INTACT. PPP. WILL MONITOR
[2019-05-22 13:18] VITALS: Ht 170.2 cm; Wt 77.1 kg
[2019-05-22] MEDS ORDERED: PLAVIX75 MG PO (15:25)
[2019-05-22] MEDS ORDERED: PRAVACHOL40 MG PO (15:25)
[2019-05-22] MEDS ORDERED: BAYER CHEWABLE81 MG PO (15:26)
--- NOTE | 2019-05-22 17:40 | NUR ---
PT DISCHARGED. IV DCD WITH TIP INTACT. TO PRIVATE CAR PER WHEELCHAIR
== END 2019-05-22 17:50 | disposition home or self-care (01) | DRG 247 ==
LOC: D.CATH 21:05 → D.ER 21:05 → D.M2 21:05 → EDSTATUS 22:48 → D.CATH 05-21 15:09 → D.M2 05-21 15:10
PROVIDERS: Family Medicine; ADMIT Internal Medicine Interventional Cardiology; ATTEND Internal Medicine Interventional Cardiology
PROC: 4A033BC Measurement of Arterial Pressure, Coronary, Percutaneous Approach (ICD-10-PCS; 2019-05-21)
PROC: 4A023N7 Measurement of Cardiac Sampling and Pressure, Left Heart, Percutaneous Approach (ICD-10-PCS; 2019-05-21)
PROC: B2111ZZ Fluoroscopy of Multiple Coronary Arteries using Low Osmolar Contrast (ICD-10-PCS; 2019-05-21)
PROC: B2151ZZ Fluoroscopy of Left Heart using Low Osmolar Contrast (ICD-10-PCS; 2019-05-21)
PROC: 027034Z Dilation of Coronary Artery, One Artery with Drug-eluting Intraluminal Device, Percutaneous Approach (ICD-10-PCS; principal; 2019-05-21 10:35)
PROC: 02C03ZZ Extirpation of Matter from Coronary Artery, One Artery, Percutaneous Approach (ICD-10-PCS; 2019-05-21 10:35)
PROC: 027135Z Dilation of Coronary Artery, Two Arteries with Two Drug-eluting Intraluminal Devices, Percutaneous Approach (ICD-10-PCS; 2019-05-22)
PROC: 02C03ZZ Extirpation of Matter from Coronary Artery, One Artery, Percutaneous Approach (ICD-10-PCS; 2019-05-22)
DX: I21.4 Non-ST elevation (NSTEMI) myocardial infarction (principal); I11.0 Hypertensive heart disease with heart failure; I50.9 Heart failure, unspecified; I48.91 Unspecified atrial fibrillation; I25.119 Atherosclerotic heart disease of native coronary artery with unspecified angina pectoris; Z86.73 Personal history of transient ischemic attack (TIA), and cerebral infarction without residual deficits; Z95.0 Presence of cardiac pacemaker; Z87.891 Personal history of nicotine dependence

== ENCOUNTER 2020-01-31 15:13 | Emergency (ER) | payer MEDICARE, MEDICAID ==
[~2020-01-31] VITALS: Ht 170.2 cm; Wt 80.9 kg
[~2020-01-31 15:13] MED LIST: ATIVAN1 MG PO; BAYER CHEWABLE81 MG PO; LASIX40 MG PO; LISINOPRIL40 MG PO; MORPHINE PUMP; PHENERGAN25 M1 PO; PLAVIX75 MG PO; PRAVACHOL40 MG PO
[2020-01-31 15:18] VITALS: Ht 170.2 cm; Wt 80.9 kg
[2020-01-31 16:54] LABS: BASOPHILS 0.3 % (0-2); EOSINOPHILS 1.9 % (0-7); HEMOGLOBIN 10.5 g/dL (13.5-17.5); IMMATURE GRANULOCYTES 1.9 % (0-5); LYMPHOCYTES 18.2 % (15-50); MCH 36.1 pg (26.0-34.0); MCHC 32.8 g/dL (31.0-37.0); MEAN PLATELET VOLUME 10.2 fL (7.4-10.4); MONOCYTES 9.1 % (2-11); NEUTROPHILS 68.6 % (40-80); RBC 2.91 10x6/uL (4.20-6.10); RDW 16.1 % (11.5-14.5); WBC 13.3 10x3/uL (4.8-10.8)
[2020-01-31 16:55] LABS: PLATELET COUNT 348 10x3/uL (130-400)
[2020-01-31 17:04] LABS: CALC OSMOLALITY 287 mosm/kg (275-300); CALCIUM 8.5 mg/dL (8.5-10.1); CHLORIDE - SERUM 106 mmol/L (98-107); CREATININE - SERUM 2.6 mg/dL (0.6-1.3); GLUCOSE 100 mg/dL (74-106); POTASSIUM - SERUM 3.5 mmol/L (3.5-5.1); SODIUM 139 mmol/L (136-145); UREA NITROGEN 41 mg/dL (7-18); eGFR NON AFRICAN AMERICAN 27 mL/min (90-120)
[2020-01-31 17:09] LABS: INR 1.06 (0.85-1.17); PROTIME 13.8 SECONDS (11.6-15.0)
[2020-01-31 17:10] LABS: APTT 81.5 SECONDS (22.8-39.4)
[2020-01-31 17:21] LABS: ALBUMIN 3.3 g/dL (3.4-5.0); ALKALINE PHOSPHATASE 116 U/L (30-120); ALT (SGPT) 23 U/L (10-68); BILIRUBIN - TOTAL 0.29 mg/dL (0.2-1.3); CKMB 0.9 U/L (0.0-3.6); CREATINE KINASE 56 UL (21-232); MAGNESIUM - SERUM 1.9 mg/dL (1.8-2.4); PROTEIN - SERUM 7.4 g/dL (6.4-8.2); TROPONIN-I < 0.017 ng/mL (0.000-0.060)
[2020-01-31] MEDS ORDERED: ISOSORBIDE MONO30 M1 PO (20:18)
[2020-01-31 21:01] VITALS: BP 125/80
== END 2020-01-31 21:03 | disposition home or self-care (01) ==
LOC: D.ER 15:13
PROVIDERS: Emergency Medicine
DX: R07.9 Chest pain, unspecified (principal); Z86.73 Personal history of transient ischemic attack (TIA), and cerebral infarction without residual deficits; J45.909 Unspecified asthma, uncomplicated; Z95.0 Presence of cardiac pacemaker